=== PATIENT | female | born 1965 | race Caucasian/White ===

== ENCOUNTER 2016-11-03 14:29 | Emergency (ER) | payer OTHER ==
[~2016-11-03] VITALS: Ht 172.7 cm; Wt 110.2 kg
[2016-11-03] MEDS ORDERED: HCTZ/LISINOPRIL1 TA3 PO (14:42)
[2016-11-03] MEDS ORDERED: METFORMIN ER500 MG PO (14:42)
[2016-11-03] MEDS ORDERED: CIPROFLOXACIN500 M2 PO (14:42)
[2016-11-03] MEDS ORDERED: ROSUVASTATIN CAL5 MG PO (14:43)
[2016-11-03 14:51] LABS: HEMOGLOBIN 10.2 g/dL (12.2-16.2); LYMPH # 1.4 K/mm3 (0.7-4.5); LYMPH % 9.9 % (10-50.0)
[2016-11-03 14:53] LABS: URINE BILIRUBIN - DIPSTICK NEGATIVE (NEG); URINE BLOOD NEGATIVE (NEG)
--- NOTE | 2016-11-03 14:56 | Emergency Room Report ---
History of Present Illness Time Seen by 1430 Presenting Problem in Triage Pt arrived:Walked Presenting Problem:PT REPORTS L FLANK PAIN AND LOWER ABD PAIN, PT REPORTS IS ON ANTIBIOTIC FROM PCP R/T PUS IN URINE. PT REPORTS BURNING WITH URINATION. REPORTS PAIN HAS WORSENED SINCE BEGINING. 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 N Clinical Suspician of Infection? N Mental Status: 1 - Regular (Normal Baseline) Sepsis Risk:Low Sepsis Risk Have you (or family members/close friends) recently traveled outside the [place]? N If Yes, where/when: Have you had exposure to infectious disease within the past month? N TB? Other? Specify: Comment The patient complains of LEFT flank pain, suprapubic abdominal pain, dysuria. She says that she saw her primary care physician on Sunday 3 days ago for LEFT flank pain. Urinalysis showed pyuria, but no blood. She has been on antibiotics. She now also has diffuse super pubic pain. She denies fever or vomiting. She has a prior history of kidney stones. ALLERGIES Coded Allergies: Penicillins (I-RASH 06/07/15) morphine (I-RASH 06/07/15) Home Medications Reported Medications LISINOPRIL/HYDROCHLOROTHIAZIDE (Lisinopril-Hctz 20-12.5 MG Tab) 0.5 TAB PO DAILY #45 METFORMIN HCL (Metformin HCl ER) 500 MG PO DAILY #90 CIPROFLOXACIN HCL (Ciprofloxacin HCl) 500 MG PO BID #20 Rosuvastatin Calcium 5 MG PO QHS #90 History Medical History General CAD? No Angina: No [place]: No Hypertension? Yes Hyperlipidemia? Yes CHF? No DVT? No PE? No COPD? No Asthma? No Anemia? No GERD? Yes Gastric ulcers? No GI Bleed? No Hernia? Yes Thyroid Problems? No Hypothyroidism? No CVA? No Seizures? No Diabetes? Yes Insulin Dependent: No Insulin Pump: No Home FSBS? Yes Renal Insuffiency? No End Stage Renal Disease? No UTI? No Stones? Yes GB Disease: No Nephritic Syndrome? No Asplenia? No Hepatitis? No Sickle Cell Disease? No Arthritis? No Migraines? No Cataracts? No Glaucoma? No MRSA? No HIV? No TB? No Anxiety? No Depression? No Cancer? No More? 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 Musculoskeletal back pain (Left) Physical Exam Vital Signs Vital Signs Date Time Temp Pulse Resp B/P Pulse O2 O2 Flow FiO2 Ox Delivery Rate 11/03 1732 98.6 111 18 125/86 99 11/03 1608 102 18 115/86 97 11/03 1433 98.6 103 18 113/77 97 General Appearance normal appearance, WD/WN Eye Exam - bilateral eye normal exam, bilateral eye PERRL, bilateral eye EOMI Ear, Nose, Throat hearing grossly normal, normal ENT inspection Neck normal inspection, non-tender, supple, full range of motion Respiratory Status Yes: trachea midline, chest symmetrical, non tender chest. No: respiratory distress. Lung Sounds bilateral: normal breath sounds, lungs clear. Cardiovascular normal exam, regular rate/rhythm, no peripheral edema, no gallop, no JVD, no murmur, no rub, normal peripheral pulses Peripheral Pulses Pulses normal Yes Gastrointestinal normal bowel sounds, soft, no organomegaly, no guarding, no rebound, tenderness (suprapubic), hernia (umbilical, reducible) Back normal inspection, no CVA tenderness, no vertebral tenderness Extremities non-tender, normal range of motion, normal inspection Neurologic alert, counseling director II-XII nml as tested, normal exam, oriented x 3 Mental status normal mood/affect Skin intact, normal color, warm/dry Medical Decision Making LABS/Meds/Orders Pt receiving controlled substance in ED? No Results/Orders Laboratory Tests 11/03/16 1445: Urine Color YELLOW, Urine Appearance SL CLOUDY, Urine pH 5.5, Ur Specific [place] >= 1.030, Urine Protein TRACE H, Urine Ketones TRACE H, Urine Blood NEGATIVE, Urine Nitrate NEGATIVE, Urine Bilirubin NEGATIVE, Urine Urobilinogen 1.0, Ur Leukocyte Esterase NEGATIVE, Urine RBC 5-10, Urine WBC 10-20, Ur Squamous Epith Cells TNTC, Urine Bacteria 4+, Urine Mucus 1+, Urine Glucose NEGATIVE 11/03/16 1441: CA 125 Antigen Pending 11/03/16 1441: Amylase 46, Lipase 109 11/03/16 1441: Sodium 134 L, Potassium 4.4, Chloride 99, Carbon Dioxide 24, BUN 18, Creatinine 1.0, Estimated Creat Clear 113, Estimated GFR (MDRD) 58 L, Glucose 141 H, Calcium 9.0, Total Bilirubin 1.7 H, AST 10 L, ALT 19, Alkaline Phosphatase 66, Total Protein 8.0, Albumin 3.9, Globulin 4.1 H, Albumin/Globulin Ratio 1.0 L, WBC 14.2 H, RBC 4.59, Hgb 10.2 L, Hct 34.0 L, MCV 74.1 L, RDW 17.1, Plt Count 287, MPV 7.4, Gran % 83.0 H, Gran # 11.8 H, Lymphocytes % 9.9 L, Monocytes % 6.7, Eosinophils % 0.3, Basophils % 0.2, Lymphocytes # 1.4, Monocytes # 1.0, Eosinophils # 0.0, Basophils # 0.0, PUBS MCHC 30.1 L, MCH 22.3 L Current Medication Orders Sig/Sandra Start time Last Medication Dose Route Stop Time Status Admin Sodium Chloride 10 ML PRN PRN 11/03 144 DCD IV 11/04 1444 Orders Procedure Date/time Status DIET-NOTHING BY MOUTH 11/03 D Active US PELVIS (NO FETUS) 11/03 1645 Active CA 125 11/03 1642 Active URINE 11/03 1607 Complete LIPASE 11/03 1510 Complete AMYLASE 11/[address] ABD/PELVIS REQ 11/03 144 Complete IV SALINE LOCK 11/03 144 Active CULTURE, URINE 11/03 144 Active URINALYSIS/COMPLETE 11/03 144 Complete CBC WITH AUTO DIFF 11/03 1444 Complete CHEM 12 PROFILE 11/03 144 Complete XRAY/CT/US XRAY/CT/US CT abdomen, pelvis Comment CT scan interpreted by radiologist: Large complex mostly cystic pelvic mass which appears to be arising from the RIGHT adnexa consistent with ovarian neoplasm such as cystadenoma or cystadenocarcinoma. Ultrasound pelvis Comment As per [facility] procedure, ultrasound report received from truck technician: Mass appears to be cystic and arising from the RIGHT ovary Progress - 3:00 PM: Patient declines pain medication. 4:36 PM: Case discussed with Dr. Feliciano. He requests Ca125, pelvic ultrasound, follow-up in his office early next week. Departure Departure Disposition DC Home or Self Care(routine) Clinical Impression Primary Impression: Mass of right ovary Condition STABLE Referrals Braden VARELA,Jay Purcell Additional Instructions Call Dr. Feliciano's office Sunday to arrange appointment to be seen early in the week. Additional instructions for ABDOMINAL PAIN: Return immediately if worsening abdominal pain, vomiting, shortness of breath, fever, or abdominal distention. Prescriptions Current Visit Scripts HYDROCODONE/ACETAMINOPHEN ([place] 5-325 Tablet) 1 TAB PO Q6HP PRN pain #10 TAB ED Critical Care Critical Care No at 1955
--- NOTE | 2016-11-03 14:56 | Emergency Room Report ---
History of Present Illness Time Seen by 1430 Presenting Problem in Triage Pt arrived:Walked Presenting Problem:PT REPORTS L FLANK PAIN AND LOWER ABD PAIN, PT REPORTS IS ON ANTIBIOTIC FROM PCP R/T PUS IN URINE. PT REPORTS BURNING WITH URINATION. REPORTS PAIN HAS WORSENED SINCE BEGINING. 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 N Clinical Suspician of Infection? N Mental Status: 1 - Regular (Normal Baseline) Sepsis Risk:Low Sepsis Risk Have you (or family members/close friends) recently traveled outside the [place]? N If Yes, where/when: Have you had exposure to infectious disease within the past month? N TB? Other? Specify: Comment The patient complains of LEFT flank pain, suprapubic abdominal pain, dysuria. She says that she saw her primary care physician on Sunday 3 days ago for LEFT flank pain. Urinalysis showed pyuria, but no blood. She has been on antibiotics. She now also has diffuse super pubic pain. She denies fever or vomiting. She has a prior history of kidney stones. ALLERGIES Coded Allergies: Penicillins (I-RASH 06/07/15) morphine (I-RASH 06/07/15) Home Medications Reported Medications LISINOPRIL/HYDROCHLOROTHIAZIDE (Lisinopril-Hctz 20-12.5 MG Tab) 0.5 TAB PO DAILY #45 METFORMIN HCL (Metformin HCl ER) 500 MG PO DAILY #90 CIPROFLOXACIN HCL (Ciprofloxacin HCl) 500 MG PO BID #20 Rosuvastatin Calcium 5 MG PO QHS #90 History Medical History General CAD? No Angina: No [place]: No Hypertension? Yes Hyperlipidemia? Yes CHF? No DVT? No PE? No COPD? No Asthma? No Anemia? No GERD? Yes Gastric ulcers? No GI Bleed? No Hernia? Yes Thyroid Problems? No Hypothyroidism? No CVA? No Seizures? No Diabetes? Yes Insulin Dependent: No Insulin Pump: No Home FSBS? Yes Renal Insuffiency? No End Stage Renal Disease? No UTI? No Stones? Yes GB Disease: No Nephritic Syndrome? No Asplenia? No Hepatitis? No Sickle Cell Disease? No Arthritis? No Migraines? No Cataracts? No Glaucoma? No MRSA? No HIV? No TB? No Anxiety? No Depression? No Cancer? No More? 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 Musculoskeletal back pain (Left) Physical Exam Vital Signs Vital Signs Date Time Temp Pulse Resp B/P Pulse O2 O2 Flow FiO2 Ox Delivery Rate 11/03 1732 98.6 111 18 125/86 99 11/03 1608 102 18 115/86 97 11/03 1433 98.6 103 18 113/77 97 General Appearance normal appearance, WD/WN Eye Exam - bilateral eye normal exam, bilateral eye PERRL, bilateral eye EOMI Ear, Nose, Throat hearing grossly normal, normal ENT inspection Neck normal inspection, non-tender, supple, full range of motion Respiratory Status Yes: trachea midline, chest symmetrical, non tender chest. No: respiratory distress. Lung Sounds bilateral: normal breath sounds, lungs clear. Cardiovascular normal exam, regular rate/rhythm, no peripheral edema, no gallop, no JVD, no murmur, no rub, normal peripheral pulses Peripheral Pulses Pulses normal Yes Gastrointestinal normal bowel sounds, soft, no organomegaly, no guarding, no rebound, tenderness (suprapubic), hernia (umbilical, reducible) Back normal inspection, no CVA tenderness, no vertebral tenderness Extremities non-tender, normal range of motion, normal inspection Neurologic alert, retoucher II-XII nml as tested, normal exam, oriented x 3 Mental status normal mood/affect Skin intact, normal color, warm/dry Medical Decision Making LABS/Meds/Orders Pt receiving controlled substance in ED? No Results/Orders Laboratory Tests 11/03/16 1445: Urine Color YELLOW, Urine Appearance SL CLOUDY, Urine pH 5.5, Ur Specific [place] >= 1.030, Urine Protein TRACE H, Urine Ketones TRACE H, Urine Blood NEGATIVE, Urine Nitrate NEGATIVE, Urine Bilirubin NEGATIVE, Urine Urobilinogen 1.0, Ur Leukocyte Esterase NEGATIVE, Urine RBC 5-10, Urine WBC 10-20, Ur Squamous Epith Cells TNTC, Urine Bacteria 4+, Urine Mucus 1+, Urine Glucose NEGATIVE 11/03/16 1441: CA 125 Antigen Pending 11/03/16 1441: Amylase 46, Lipase 109 11/03/16 1441: Sodium 134 L, Potassium 4.4, Chloride 99, Carbon Dioxide 24, BUN 18, Creatinine 1.0, Estimated Creat Clear 113, Estimated GFR (MDRD) 58 L, Glucose 141 H, Calcium 9.0, Total Bilirubin 1.7 H, AST 10 L, ALT 19, Alkaline Phosphatase 66, Total Protein 8.0, Albumin 3.9, Globulin 4.1 H, Albumin/Globulin Ratio 1.0 L, WBC 14.2 H, RBC 4.59, Hgb 10.2 L, Hct 34.0 L, MCV 74.1 L, RDW 17.1, Plt Count 287, MPV 7.4, Gran % 83.0 H, Gran # 11.8 H, Lymphocytes % 9.9 L, Monocytes % 6.7, Eosinophils % 0.3, Basophils % 0.2, Lymphocytes # 1.4, Monocytes # 1.0, Eosinophils # 0.0, Basophils # 0.0, PUBS MCHC 30.1 L, MCH 22.3 L Current Medication Orders Sig/Sandra Start time Last Medication Dose Route Stop Time Status Admin Sodium Chloride 10 ML PRN PRN 11/03 144 DCD IV 11/04 1444 Orders Procedure Date/time Status DIET-NOTHING BY MOUTH 11/03 D Active US PELVIS (NO FETUS) 11/03 1645 Active CA 125 11/03 1642 Active URINE 11/03 1607 Complete LIPASE 11/03 1510 Complete AMYLASE 11/[address] ABD/PELVIS REQ 11/03 144 Complete IV SALINE LOCK 11/03 144 Active CULTURE, URINE 11/03 144 Active URINALYSIS/COMPLETE 11/03 144 Complete CBC WITH AUTO DIFF 11/03 1444 Complete CHEM 12 PROFILE 11/03 144 Complete XRAY/CT/US XRAY/CT/US CT abdomen, pelvis Comment CT scan interpreted by radiologist: Large complex mostly cystic pelvic mass which appears to be arising from the RIGHT adnexa consistent with ovarian neoplasm such as cystadenoma or cystadenocarcinoma. Ultrasound pelvis Comment As per [facility] procedure, ultrasound report received from can technician: Mass appears to be cystic and arising from the RIGHT ovary Progress - 3:00 PM: Patient declines pain medication. 4:36 PM: Case discussed with Dr. Feliciano. He requests Ca125, pelvic ultrasound, follow-up in his office early next week. Departure Departure Disposition DC Home or Self Care(routine) Clinical Impression Primary Impression: Mass of right ovary Condition STABLE Referrals Braden VARELA,Jay Purcell Additional Instructions Call Dr. Feliciano's office Sunday to arrange appointment to be seen early in the week. Additional instructions for ABDOMINAL PAIN: Return immediately if worsening abdominal pain, vomiting, shortness of breath, fever, or abdominal distention. Prescriptions Current Visit Scripts HYDROCODONE/ACETAMINOPHEN ([place] 5-325 Tablet) 1 TAB PO Q6HP PRN pain #10 TAB ED Critical Care Critical Care No at 1955
[2016-11-03 15:23] LABS: URINE SQUAMOUS CELLS TNTC #/hpf (0-5)
--- NOTE | 2016-11-03 16:14 | RADIOLOGY REPORT PS360 ---
CT ABD PELVIS W/O CONTRAST CLINICAL INDICATION: LEFT FLANK PAIN, LOWER ABD PAIN ORDERING PHYSICIAN: Jason Farias MD PATIENT AGE: 51 years COMPARISON: None TECHNIQUE: Axial images obtained with sagittal and coronal reformats. PROCEDURE: Oral Contrast: None IV Contrast: None . FINDINGS: Lung bases are clear. There is a small hiatal hernia. The liver, gallbladder, spleen, adrenal glands, and pancreas have an unremarkable unenhanced CT appearance. No hydronephrosis. No ureteral calculi. There are nonobstructing punctate calculi in the upper pole both kidneys. No evidence of appendicitis or diverticulitis. There is diverticulosis of the descending and sigmoid colon. There is an umbilical hernia containing fat. The orbits of the hernia is approximately 2.6 cm. There is a large complex solid and cystic mass situated in this right paracentral aspect of the pelvis extending into the lower abdomen. The mass appears to be emanating from the right adnexa. The mass measures up to 19 cm cephalad to caudad, 14 cm transverse, and 13 cm in AP dimension there is a multilocular large cystic component. The mass extends across the midline toward the left. There is no ascites. No adenopathy is evident. No acute bony anomalies. IMPRESSION: Large complex mostly cystic pelvic mass which appears to be arising from the right adnexa consistent with ovarian neoplasm such as cystadenoma or cystadenocarcinoma.
[2016-11-03] MEDS ORDERED: NORCO 325 MG-51 TAB PO (17:24)
[2016-11-03 17:32] VITALS: BP 125/86
--- NOTE | 2016-11-04 10:57 | RADIOLOGY REPORT PS360 ---
US PELVIS (NO FETUS) HISTORY: Pelvic mass R adnexal mass ORDERING PHYSICIAN: Jason Farias MD PATIENT AGE: 51 years COMPARISON: Scan the same day FINDINGS: Images of the uterus are somewhat limited due to the difficulty in visualizing secondary to the large pelvic mass. Uterus measures 7 x 6.4 x 6.6 cm. There is somewhat heterogeneous echogenicity of the uterine fundus. Fibroid involvement is a consideration. Endometrial stripe was not identified. There is a large complex right ovarian mass mostly cystic and is multilocular. The overall dimensions of the mass is probably better delineated by CT. The mass measures at least 18 cm sagittal and 12 cm transverse. There are internal septations involving the mass which do not appear nodular or excessively thickened The left ovary difficult to visualize but appears unremarkable at 3.5 x 3 cm. No cul-de-sac fluid evident. IMPRESSION: 1. Large complex cystic pelvic mass appears to be arising from the right adnexa consistent with complex ovarian cyst. Ovarian cystadenoma or cystadenocarcinoma is a consideration. 2. Uterine fundus is coarse in echogenicity and may be related to fibroid involvement
== END 2016-11-03 17:33 | disposition home or self-care (01) ==
LOC: ER 14:29
PROVIDERS: Emergency Medicine
DX: N83.8 Other noninflammatory disorders of ovary, fallopian tube and broad ligament (principal); Z87.442 Personal history of urinary calculi; E11.9 Type 2 diabetes mellitus without complications; I10 Essential (primary) hypertension; E78.5 Hyperlipidemia, unspecified; Z79.899 Other long term (current) drug therapy; Z88.5 Allergy status to narcotic agent; Z88.0 Allergy status to penicillin